=== PATIENT | female | born 1980 | race Caucasian/White ===

== ENCOUNTER 2023-01-30 14:57 | Outpatient (CLI) | payer OTHER | END 2023-01-30 14:58 | disposition home or self-care (01) | LOC: TBSIIMAG 14:57 | PROVIDERS: ATTEND Neurological Surgery | DX: M54.50 Low back pain, unspecified (principal); M43.16 Spondylolisthesis, lumbar region; M47.817 Spondylosis without myelopathy or radiculopathy, lumbosacral region; M51.37 Other intervertebral disc degeneration, lumbosacral region; M47.816 Spondylosis without myelopathy or radiculopathy, lumbar region | CPT/HCPCS: 72100; 72120 ==